=== PATIENT | female | born 1955 | race American Indian/Alaskan Native ===

== ENCOUNTER 2017-03-15 06:17 | Emergency (ER) | payer OTHER ==
[2017-03-15 06:59] VITALS: BP 183/113
--- NOTE | 2017-03-15 07:21 | Emergency Department Report ---
ED ENT HPI - General Chief complaint: Medical Clearance Stated complaint: FB L EAR Time Seen by Provider: 03/15/17 07:14 Source: patient Mode of arrival: Ambulatory Limitations: No Limitations - History of Present Illness Initial comments: Patient arrives to ED complaining of off that flew in her ear us morning. Patient denies headache, blurred vision, dizziness, nausea vomiting. MD complaint: ear pain -: Sudden Location: R ear Severity scale (0 -10): 0 Quality: other (denies pain but does relate discomfort due to mall flaring and air.) Improves with: none Worsens with: none Associated Symptoms: denies: tinnitus, hearing loss, discharge from ear - Related Data Previous Rx's Medication Instructions Recorded Last Taken Type Neomy/Polymyx B/Hc (Otic) Soln 4 drops OTIC TID #1 bottle 03/15/17 Unknown Rx [Cortisporin (Otic) Soln] Allergies Allergy/AdvReac Type Severity Reaction Status Date / Time Sulfa (Sulfonamide Allergy Unknown Verified 03/15/17 06:59 Antibiotics) ED Dental HPI - General Chief complaint: Medical Clearance Stated complaint: FB L EAR Time Seen by Provider: 03/15/17 07:14 Source: patient Mode of arrival: Ambulatory Limitations: No Limitations - History of Present Illness MD complaint: other (ear discomfort) -: Sudden Consistency: constant Improves with: none Worsens with: none - Related Data Previous Rx's Medication Instructions Recorded Last Taken Type Neomy/Polymyx B/Hc (Otic) Soln 4 drops OTIC TID #1 bottle 03/15/17 Unknown Rx [Cortisporin (Otic) Soln] Allergies Allergy/AdvReac Type Severity Reaction Status Date / Time Sulfa (Sulfonamide Allergy Unknown Verified 03/15/17 06:59 Antibiotics) ED Review of Systems ROS: Stated complaint: FB L EAR Other details as noted in HPI Constitutional: denies: chills, fever Eyes: denies: eye pain, eye discharge, vision change ENT: ear pain (ear discomfort due to insect fluttering in ear canal denies pain) . denies: throat pain Respiratory: denies: cough, shortness of breath, wheezing Cardiovascular: denies: chest pain, palpitations Endocrine: no symptoms reported Gastrointestinal: denies: abdominal pain, nausea, diarrhea Genitourinary: denies: urgency, dysuria, discharge Musculoskeletal: denies: back pain, joint swelling, arthralgia Skin: denies: rash, lesions Neurological: denies: headache, weakness, numbness, paresthesias, abnormal gait , vertigo Psychiatric: denies: anxiety, depression Hematological/Lymphatic: denies: easy bleeding, easy bruising ED Past Medical Hx - Past Medical History Previous Medical History?: Yes Hx Asthma: Yes - Surgical History Past Surgical History?: Yes Additional Surgical History: hysterectomy, R. ring finger amputation, bilat knee surgery - Social History Smoking Status: Never Smoker - Medications Home Medications: Home Medications Medication Instructions Recorded Confirmed Last Taken Type Neomy/Polymyx B/Hc (Otic) Soln 4 drops OTIC TID #1 bottle 03/15/17 Unknown Rx [Cortisporin (Otic) Soln] ED Physical Exam - General Limitations: No Limitations General appearance: alert, in no apparent distress - Head Head exam: Present: atraumatic, normocephalic - Eye Eye exam: Present: normal appearance, PERRL, EOMI. Absent: nystagmus - ENT ENT exam: Present: normal orophraynx, mucous membranes moist, TM's normal bilaterally (left TM clear right TM up secured), other (right-sided cerumen obscuration, no insect seen on initial exam.) - Neck Neck exam: Present: normal inspection, full ROM. Absent: tenderness, meningismus, lymphadenopathy - Respiratory Respiratory exam: Present: normal lung sounds bilaterally. Absent: respiratory distress - Cardiovascular Cardiovascular Exam: Present: regular rate, normal rhythm. Absent: systolic murmur, diastolic murmur, rubs, gallop - GI/Abdominal GI/Abdominal exam: Present: soft, normal bowel sounds - Extremities Exam Extremities exam: Present: normal inspection - Back Exam Back exam: Present: normal inspection - Neurological Exam Neurological exam: Present: alert, oriented X3, CN II-XII intact, normal gait - Psychiatric Psychiatric exam: Present: normal affect, normal mood - Skin Skin exam: Present: warm, dry, intact, normal color. Absent: rash ED Course Vital Signs 03/15/17 06:56 Temperature 97.7 F Pulse Rate 65 Respiratory 18 Rate Blood Pressure 183/113 O2 Sat by Pulse 100 Oximetry - Ear Wax Removal Right Ear Ear Canal Irrigated by: other (PA) Ear Canal(s) Curettaged: other (none) Results: Re-examined: some cerumen remains Ear Canal: atraumatic Patient Tolerated Procedure: well, no complications Complications: no problems Additional Comments: Neurologic using Simon syringe 16-gauge IV catheter warm water with hydrogen peroxide. Large amount of cerumen removed as well as live off. TM still appears to be obscured or severely discolored. No more lavage will be performed patient referred to PCP and ENT. Patient tolerated procedure well denies any pain, has no vertigo, dizziness, nausea vomiting, or blurred vision. Patient has normal gait on ambulation out of ED. Patient very thankful for procedure. Critical care attestation.: If time is entered above; I have spent that time in minutes in the direct care of this critically ill patient, excluding procedure time. ED Disposition Clinical Impression: Impacted cerumen of right ear, Foreign body in ear Disposition: DISCHARGED TO HOME OR SELFCARE Is pt being admited?: No Condition: Stable Instructions: Cerumen Impaction (ED), Otitis Externa (ED) Prescriptions: Neomy/Polymyx B/Hc (Otic) Soln [Cortisporin (Otic) Soln] 4 drops OTIC TID #1 bottle Referrals: JAKUB GLORIA MD [Staff Physician] - 3-5 Days ROWDY GEORGES MD [Staff Physician] - 3-5 Days GARIMA HOFFMANN MD [Staff Physician] - 3-5 Days
[2017-03-15] MEDS ORDERED: HYDROGEN PEROXIDE ONE (07:23)
[2017-03-15] MEDS ORDERED: EAR WAX DROPS AU ONE (07:45)
[2017-03-15] MEDS ORDERED: HYDROGEN PEROXIDE TP ONE (16:45)
== END 2017-03-15 07:47 | disposition home or self-care (01) ==
LOC: ED 06:17
DX: H61.21 Impacted cerumen, right ear (principal); T16.1XXA Foreign body in right ear, initial encounter; X58.XXXA Exposure to other specified factors, initial encounter; Y93.89 Activity, other specified; Y92.89 Other specified places as the place of occurrence of the external cause; Y99.8 Other external cause status; Z88.2 Allergy status to sulfonamides; J45.909 Unspecified asthma, uncomplicated